=== PATIENT | male | born 1965 | race Caucasian/White ===

== ENCOUNTER 2022-06-12 10:17 | Inpatient (IN) | payer SELFPAY ==
[~2022-06-12] VITALS: Ht 165.1 cm; Wt 68.0 kg
[2022-06-12 10:36] LABS: HEMATOCRIT 38.9 % (36.7-47.1); MEAN CORPUSCULAR HEMOGLOBIN 29.5 uug (23.8-33.4); MEAN CORPUSCULAR VOLUME 88.4 fL (73.0-96.2); PLATELET COUNT (AUTO) 265 K/uL (152-348)
--- NOTE | 2022-06-12 10:37 | NUR ---
pt roomed, endorsed to Henrique CONROY
[2022-06-12 10:53] LABS: CARBON DIOXIDE 13 mmol/L (21-32); CHLORIDE 105 mmol/L (98-107); CREATININE 1.4 mg/dL (0.6-1.3); GLUCOSE 135 mg/dL (74-106); POTASSIUM 3.6 mmol/L (3.5-5.1); UREA NITROGEN, BLOOD 23 mg/dL (7-18)
--- NOTE | 2022-06-12 10:58 | NUR ---
PT NOTED TO HAVE CONVULSIONS AND CLEMENT DACOSTA NOTIFIED OF SEIZURE LIKE ACTIVITY. PT IS ON THE [address] COURT REPORTER AND 15L O2 NRB MASK APPLIED
[2022-06-12 10:59] LABS: ALANINE AMINOTRANSFERASE 27 U/L (16-63); ALKALINE PHOSPHATASE 59 U/L (50-136); ASPARTATE AMINOTRANSFERASE 23 U/L (15-37); BILIRUBIN,DIRECT < 0.1 mg/dL (0.0-0.2); BILIRUBIN,TOTAL 0.3 mg/dL (0.2-1.0); TOTAL PROTEIN, SERUM 7.6 g/dL (6.4-8.2)
[2022-06-12] MEDS ORDERED: LORAZEPAM 2 MG/1 ML VIAL ONE ×2 (11:00→11:36)
[2022-06-12] MEDS ORDERED: LORAZEPAM 2 MG/1 ML VIAL IV ONE ×2 (11:00→11:45)
[2022-06-12] MEDS ORDERED: IV NORMAL SALINE 500 ML BAG IV ONE (11:00)
[2022-06-12 11:01] LABS: ACETAMINOPHEN < 2.0 ug/mL (10-30)
[2022-06-12 11:09] LABS: ETHANOL < 3 MG/DL (0-0)
--- NOTE | 2022-06-12 11:37 | NUR ---
Clinical SW Note: SW attempted to assess the pt. for overdose on heroin. Pt was oriented to person only, disheveled and unkempt. Pt's mood appeared agitated and restless during the duration of this SW's assessment. Per emergency nurse, pt was brought in for overdose. Pt attempted to answer this SW's questions but his speech was unclear. Pt made poor eye contact and was too sedated for a full assessment. Pt was only able to clearly state his name. SW will follow-up with the pt tomorrow. SW will continue to work with pt, family and MD to ensure a safe and proper discharge plan. SW will assess motivation for treatment and provide resources when he is more rousable. Patient is being admitted to the medical floor due to seizures and altered level of consciousness. Plan: SW will see patient tomorrow.
[2022-06-12 14:28] LABS: *BILIRUBIN,URIN NEGATIVE (NEGATIVE); *BLOOD, URINE NEGATIVE (NEGATIVE); *CLARITY,URINE CLEAR (CLEAR); *COLOR,URINE YELLOW (YELLOW); *KETONES,URINE NEGATIVE (NEGATIVE); *UROBILINOGEN,URINE 0.2 E.U./dl (NORMAL); LEUKOCYTE ESTERASE ,URINE NEGATIVE (NEGATIVE); NITRITE, URINE NEGATIVE (NEGATIVE); PH,URINE 8.5 (5.0-8.0); UGLUCOSE NEGATIVE (NEGATIVE)
[2022-06-12 14:43] LABS: *AMPHETAMINE, URINE POSITIVE (NEGATIVE); *CANNABINOID, URINE POSITIVE (NEGATIVE); *COCCAINE, URINE NEGATIVE (NEGATIVE); *OPIATE, URINE NEGATIVE (NEGATIVE); *PHENCYCLIDINE SCREEN,URINE NEGATIVE (NEGATIVE)
[2022-06-12] MEDS ORDERED: IV NORMAL SALINE 1000 ML BAG IV ONE (15:15)
[2022-06-12] MEDS ORDERED: REMEDY ESSENTIAL ZINC PASTE 113 GM TP PRN (18:30)
[2022-06-12] MEDS ORDERED: ACETAMINOPHEN 325 MG TABLET PO PRN (18:30)
[2022-06-12] MEDS ORDERED: ONDANSETRON 4 MG/2 ML VIAL IV PRN (18:30)
[2022-06-12] MEDS ORDERED: MAGNESIUM HYDROXIDE 30 ML LIQUID UDC PO PRN (18:30)
[2022-06-12] MEDS ORDERED: LORAZEPAM 2 MG/1 ML VIAL IV PRN (18:30)
--- NOTE | 2022-06-12 19:00 | NUR ---
change of shift report from Shorty CONROY
--- NOTE | 2022-06-12 20:46 | NUR ---
Called for bed, spoke with RAFIQ Alejandra. Patient will be transfered to TELE room 316
[2022-06-12] MEDS: levETIRAcetam IV 500 MG in IV DEXTROSE 5% 100 ML IV SCH (21:05)
--- NOTE | 2022-06-12 21:18 | NUR ---
report given to RAFIQ Lee
--- NOTE | 2022-06-12 22:36 | NUR ---
Pt. admitted to TELE room 316 , under care of Dr. Xiong Belongs List completed
[2022-06-12] MEDS: IV D5 1/2 NS 1000 ML 1,000 ML IV PRN (23:00)
[2022-06-12 23:06] VITALS: BP 119/71
[2022-06-13 04:00] VITALS: BP 120/73
--- NOTE | 2022-06-13 06:00 | NUR ---
[id number]--PT ARRIVED NEW ADMIT FROM ER. VS HAVE BEEN STABLE. PT HAS BEEN NON-VERBAL MOST OF THE NIGHT. PT HAD IV I/P VIA RIGHT ARM BUT LATER DURING SHIFT PT PULLED IV OUT. ATTEMPTS MADE BY RN BUT UNSUCCESSFUL. PT SEEMS TO BE INCONT. AM CARE GIVEN. GEN COND HAS BEEN STABLE. PT ENDORSED TO RAFIQ WILSON RN
[2022-06-13 06:44] LABS: HEMATOCRIT 40.1 % (36.7-47.1); MEAN CORPUSCULAR HEMOGLOBIN 29.8 uug (23.8-33.4); MEAN CORPUSCULAR VOLUME 86.1 fL (73.0-96.2); PLATELET COUNT (AUTO) 294 K/uL (152-348)
[2022-06-13 07:02] LABS: CREATININE 0.9 mg/dL (0.6-1.3); PHOSPHOROUS 2.4 mg/dL (2.5-4.9); POTASSIUM 3.7 mmol/L (3.5-5.1)
[2022-06-13] MEDS: levETIRAcetam IV 500 MG in IV DEXTROSE 5% 100 ML IV SCH ×2 (09:34→21:30)
[2022-06-13] MEDS: PANTOPRAZOLE SODIUM 40 MG VIAL IV SCH (09:34)
--- NOTE | 2022-06-13 10:37 | NUR ---
RHONDA Clinical SW Note: SW visited pt to provide a follow-up consult. Pt appeared asleep. SW was not able to further assess.
[2022-06-13 11:33] VITALS: BP 98/62
[2022-06-13 15:45] VITALS: BP 106/65
[2022-06-13] MEDS ORDERED: NEUTRA PHOS PACKET PO ONE (16:00)
[2022-06-13 20:00] VITALS: BP 99/62
--- NOTE | 2022-06-13 22:00 | NUR ---
RECEIVED REPORT FROM AM NURSE YUE PT IS ALERT AND ORIENTED X4 HAS IV OF D5.45 INFUSINGAT 125ML AND HOUR PT TOLERATING WELL WITHOUT ANY INFILTRATION . PT REQUESTED SANDWICH AND JUICE TOLERATED WELL NO SIGNS OF DISTRESS NOTED. PT WAS GIVEN NEUTRAPHOS FOR A LOW PHOSPATE LEVEL OF 2.4,AND MAGNESIUM LEVEL OF 2.O GIVEN MAG OX. PT HAS AM LABS SCHEDULED. DIET CHANGED TO MECHANICAL SOFT AND THIN LIQUID.. PT IS HOMELESS ON BEDREST.
[2022-06-13] MEDS: IV D5 1/2 NS 1000 ML 1,000 ML IV PRN (23:18)
[2022-06-14] VITALS: BP 103/68
[2022-06-14 04:00] VITALS: BP 110/59
[2022-06-14 07:30] LABS: MEAN CORPUSCULAR HEMOGLOBIN 29.5 uug (23.8-33.4); MEAN CORPUSCULAR VOLUME 86.8 fL (73.0-96.2); PLATELET COUNT (AUTO) 250 K/uL (152-348)
[2022-06-14 08:30] VITALS: BP 105/68
[2022-06-14 08:41] LABS: CREATININE 0.9 mg/dL (0.6-1.3); MAGNESIUM 1.8 mg/dL (1.8-2.4); PHOSPHOROUS 1.8 mg/dL (2.5-4.9); POTASSIUM 3.5 mmol/L (3.5-5.1)
[2022-06-14] MEDS: levETIRAcetam IV 500 MG in IV DEXTROSE 5% 100 ML IV SCH (08:57)
[2022-06-14] MEDS: PANTOPRAZOLE SODIUM 40 MG VIAL IV SCH (08:57)
[2022-06-14] MEDS: IV D5 1/2 NS 1000 ML 1,000 ML IV PRN (08:59)
--- NOTE | 2022-06-14 10:30 | NUR ---
Pt is a/ox 3-4, pulled out IV and insisted on leaving AMA. Pt refused to take any resources, snacks, or clothes. Pt was escorted out by myself after signing AMA form. No signs of acute distress noted. Pt educated on risks of leaving against medical advice without proper discharge instructions. Pt verbalized understanding and proceeded to walk towards the elevators to exit. MD notified.
== END 2022-06-14 10:28 | disposition left against medical advice (07) | DRG 917 ==
LOC: ER 10:17 → TELE3 16:15
PROVIDERS: ADMIT Student in an Organized Health Care Education/Training Program; ATTEND Student in an Organized Health Care Education/Training Program
DX: T40.601A Poisoning by unspecified narcotics, accidental (unintentional), initial encounter (principal); G92.8 Other toxic encephalopathy; N17.0 Acute kidney failure with tubular necrosis; R56.9 Unspecified convulsions; Z59.00 Homelessness unspecified; Z20.822 Contact with and (suspected) exposure to COVID-19; Y92.89 Other specified places as the place of occurrence of the external cause; F11.10 Opioid abuse, uncomplicated
CPT/HCPCS: 36415; 70450; 83605; 83735; 84100; 85025; 95819; A4663; C1758; C9113; G0378; G0480; J1953; J2060